=== PATIENT | male | born 1990 | race Caucasian/White ===

== ENCOUNTER 2018-09-18 05:59 | Emergency (ER) | payer BC ==
[2018-09-18 06:19] VITALS: RESP 18
--- NOTE | 2018-09-18 07:23 | ED ---
General Adult HPI - General Chief complaint: Dental/Oral Stated complaint: Lump in mouth, on gums Time Seen by Provider: 09/18/18 07:11 Source: patient, RN notes reviewed Mode of arrival: ambulatory Limitations: no limitations - History of Present Illness Initial comments: Patient 28-year-old male presents to the emergency room today with chief complaint of pain and swelling to the gumline. Does admit that symptoms started tenderness both in the front tooth lower jaw has gotten larger. States was no drainage. Denies any other complaints or symptoms. Does report with dentist or horizontal next week. Patient denies any recent fever, chills, shortness of breath, chest pain, back pain, abdominal pain, headaches or visual changes, or any other complaints. - Related Data Previous Rx's Medication Instructions Recorded Hydrocodone/Acetaminophen [[place] 1 each PO Q4HR PRN #15 tab 01/19/16 5-325] Metoclopramide HCl [Reglan] 10 mg PO Q6HR PRN #15 tablet 01/19/16 Clindamycin HCl 300 mg PO Q6H #40 cap 09/18/18 Allergies Allergy/AdvReac Type Severity Reaction Status Date / Time Penicillins Allergy Unknown Verified 09/18/18 06:19 Childhood Review of Systems ROS Statement: Those systems with pertinent positive or pertinent negative responses have been documented in the HPI. ROS Other: All systems not noted in ROS Statement are negative. Past Medical History Past Medical History: No Reported History History of Any Multi-Drug Resistant Organisms: None Reported Past Surgical History: Ear Surgery, Tonsillectomy Past Psychological History: No Psychological Hx Reported Smoking Status: Never smoker Past Alcohol Use History: None Reported Past Drug Use History: None Reported General Exam - General Exam Comments Initial Comments: General: The patient is awake and alert, in no distress, and does not appear acutely ill. Eye: There is normal conjunctiva bilaterally. No signs of icterus. Ears, nose, mouth and throat: Patient does have area of redness and mild swelling behind her front bottom tooth. Locally tender in this area. There is no drainage. No abscess to drain. Uvula midline. Swallows without difficulty. Neck: The neck is supple, there is no tenderness or JVD. Musculoskeletal: Normal ROM, no tenderness. Neurological: A&O x 3. CN II-XII intact, There are no obvious motor or sensory deficits. Coordination appears grossly intact. Speech is normal. Skin: Skin is warm and dry and no rashes or lesions are noted. Psychiatric: Cooperative, appropriate mood & affect, normal judgment. Limitations: no limitations Course Vital Signs 09/18/18 06:15 Temperature 98.3 F Pulse Rate 96 Respiratory 18 Rate Blood Pressure 155/85 O2 Sat by Pulse 98 Oximetry Medical Decision Making - Medical Decision Making The patient will be shown on antibiotics cover for dental abscess. Does have ALLERGIES to penicillin will be given prescription for clindamycin. Advised continued follow-up with his dentist. Advised return for any other concerns Disposition Clinical Impression: Dental abscess Disposition: HOME SELF-CARE Condition: Good Instructions (If sedation given, give patient instructions): Dental Abscess (ED) Additional Instructions: Please use medication as discussed. Please follow-up with dentist/family doctor in the next 2 days of symptoms have not improved. Please return to emergency room if the symptoms increase or worsen or for any other concerns. Prescriptions: Clindamycin HCl 300 mg PO Q6H #40 cap Is patient prescribed a controlled substance at d/c from ED?: No Referrals: None,Stated [Primary Care Provider] - 1-2 days Time of Disposition: 07:23
[2018-09-18 07:30] VITALS: BP 146/98; PULSE 70; TEMP 98.5
== END 2018-09-18 07:29 | disposition home or self-care (01) ==
LOC: EC 05:59
DX: K04.7 Periapical abscess without sinus (principal); Z88.0 Allergy status to penicillin
CPT/HCPCS: 99282

== ENCOUNTER → 2018-12-12 | Outpatient (CLI) | payer BC ==
--- NOTE | 2018-12-13 07:42 | CT ---
EXAMINATION TYPE: CT soft tissue neck wo/w con, CT facial bones wo/w con DATE OF EXAM: 12/12/2018 COMPARISON: None HISTORY: 28-year-old male cellulitis of mouth/face, Bump under tongue right side TECHNIQUE: Contiguous axial scanning of the soft tissues of the neck including the facial bones perfo rmed without and with IV Contrast, patient injected with 100 mL of Isovue 300. Coronal/sagittal recon structions performed. CT DLP: 1322 mGycm Automated exposure control for dose reduction was used. FINDINGS: There was technologist error and contrast injection was started at the time of the noncontrast scan. The contrast injector was stopped short and a washout period was allowed prior to resuming the scan. The noncontrast series has some contrast on board. Heterogeneously enhancing nodule measuring 1.9 cm within the lateral right lobe of the thyroid gland measured on coronal series. Submandibular glands appear satisfactory. Bilateral parotid glands are atrophic. No suspicious calcification seen along the floor of the mouth. Visualized orbits and globes, paranasal sinuses, and mastoid air cells appear clear. Slight rightward nasal septal deviation. The nasopharynx is clear. Mild hypertrophy of the lingual tonsils. Oropharynx otherwise clear. Epiglottis and prevertebral soft tissues within normal limits. The glottic and subglottic structures as well as the tracheal column and visualized upper lungs are c lear. No discrete soft tissue abnormality involving the face. Prominent dental amalgam artifact. A few scattered prominent but nonenlarged upper cervical lymph nodes measure up to 7 mm. No thoracic lymphadenopathy by CT size criteria. Bones: No osseous destructive process. IMPRESSION: 1. NO SIALOLITHIASIS OR EVIDENT SIALOADENITIS BY CT. 2. MILD BILATERAL LINGUAL TONSILLAR HYPERTROPHY. 3. NO OTHER SPECIFIC ABNORMALITY SEEN.
== END | disposition home or self-care (01) ==
LOC: RADCTMAIN 12-05 15:05
PROVIDERS: ATTEND Dentist Oral and Maxillofacial Surgery
DX: J35.1 Hypertrophy of tonsils (principal)
CPT/HCPCS: 70492; Q9967

== ENCOUNTER → 2023-09-25 | Outpatient (CLI) | payer OTHER ==
--- NOTE | 2023-09-25 16:23 | US ---
EXAMINATION TYPE: US thyroid st tissue head/neck DATE OF EXAM: 09/25/2023 COMPARISON: 12/12/2018. CLINICAL INDICATION: Male, 33 years old with history of E03.9 HYPOTHYROIDISM, UNSPECIFIED; known nodu le from previous CT GLAND SIZE: Right Lobe: 4.9 x 1.4 x 1.7 cm Overall Parenchyma: heterogeneous Left Lobe: 4.6 x 1.8 x 1.6 cm Overall Parenchyma: heterogeneous Isthmus Thickness: 0.5 cm NODULES RIGHT: # of nodules measured on right: 1 1. 2.7 X 1.9 x 1.7 cm, lower , Prior size: [employer] TIRADS Score: 4 TIRADS Category 4: Composition: Solid or almost completely solid (2 points). Echogenicity: Hypoechoic (2 points). Shape: Wider than tall (0 points). Margin: Smooth (0 points). Echogenic foci: None or large comet-tail artifacts (0 points) Recommendation: If >1.5cm: FNA; If >1cm: Follow up at 1,2, 3,5 years LEFT: # of nodules measured on left: 0 ISTHMUS: # of nodules measured in the isthmus: 0 Bilateral neck scanned, no evidence of lymphadenopathy. IMPRESSION: Right thyroid gland nodule meets criteria for fine needle aspiration if not already performed.
== END | disposition home or self-care (01) ==
LOC: RADUSWWP 15:03
PROVIDERS: ATTEND Family Medicine
DX: E04.1 Nontoxic single thyroid nodule (principal)
CPT/HCPCS: 76536

== ENCOUNTER 2023-11-14 11:57 | Day surgery (SDC) | payer OTHER ==
[2023-11-14 12:31] VITALS: BP 131/78; PULSE 68; RESP 12; TEMP 98.9
--- NOTE | 2023-11-14 13:55 | US ---
ULTRASOUND GUIDED FNA THYROID BIOPSY: CLINICAL HISTORY: Right thyroid nodule FINDINGS: The procedure was explained to the patient. The risks, complications, benefits and alternatives were discussed and any questions were answered. Informed consent was obtained. Patient was placed supin e on the ultrasound table and prepped and draped in the usual sterile fashion. Utilizing a 25 gauge needle, five passes were made into the requested right thyroid nodule. Patient was stable throughout the procedure. Pathology is pending. All elements of maximal barrier technique were utilized. IMPRESSION: 1. Successful ultrasound guided FNA thyroid biopsy.
== END 2023-11-14 13:30 | disposition home or self-care (01) ==
LOC: RADPROMAIN 11:57
PROVIDERS: ATTEND Otolaryngology
DX: E04.1 Nontoxic single thyroid nodule (principal)
CPT/HCPCS: 10005; 88173; 88305

== ENCOUNTER → 2024-11-08 | Outpatient (CLI) | payer OTHER ==
--- NOTE | 2024-11-08 14:07 | US ---
EXAMINATION TYPE: US thyroid st tissue head/neck DATE OF EXAM: 11/08/2024 COMPARISON: 09/25/23, 11/14/2023 CLINICAL INDICATION: Male, 34 years old with history of E04.1 THYROID NODULE; F/U TECHNIQUE: Grayscale and color Doppler imaging of the thyroid gland. FINDINGS: GLAND SIZE: Right Lobe: 4.1 x 1.5 x 1.5 cm Overall Parenchyma: homogeneous Left Lobe: 3.8 x 1.0 x 1.2 cm Overall Parenchyma: Heterogenous Isthmus Thickness: cm NODULES RIGHT: # of nodules measured on right: 1 1. 2.0 X 1.0 x 1.3 cm, lower lateral, solid or almost completely solid, isoechoic nodule, which is wider than tall, with smooth margins, without echogenic foci. TR 3 Prior size: 2.7 x 1.7 x 1.9 cm LEFT: # of nodules measured on left: 0 ISTHMUS: # of nodules measured in the isthmus: 0 Nodule has decreased in size and echogenicity. Difficult to delineate from surrounding thyroid parenc hyma. Bilateral neck scanned, no evidence of lymphadenopathy. IMPRESSION: Mildly suspicious nodule right lobe thyroid. Highest TI-RADS level nodule reported: 2017 ACR TI-RADS LEVEL: TI-RADS 3 - Mildly Suspicious: Follow if > 1.5 cm, FNA if > 2.5 cm TI-RADS assessment score and recommendation for follow-up based on appropriate scoring and treatment protocols. TR1 Benign No FNA TR2 Not suspicious No FNA TR3: If nodule size is ? 2.5 cm, FNA is recommended. If nodule size is ? 1.5 cm, follow-up imaging at 1, 3, and 5 years is recommended. TR4: If nodule size is ? 1.5 cm, FNA is recommended. If nodule size is ? 1.0 cm, follow-up imaging at 1, 2, 3, and 5 years is recommended. TR5: If nodule size is ? 1.0 cm, FNA is recommended. If nodule size is ? 0.5 cm, annual follow-up for up to 5 years is recommended. TR 1 thyroid nodules have a 0.3 % risk of malignancy. TR 2 thyroid nodules have a 1.5 % risk of malignancy. TR 3 thyroid nodules have a 4.8 % risk of malignancy. TR 4 thyroid nodules have a 9.1 % risk of malignancy. TR 5 thyroid nodules have a 35 % risk of malignancy. [email or web address] [facility], , 11/08/2024 2:05 PM
== END | disposition home or self-care (01) ==
LOC: RADUSWWP 13:26
PROVIDERS: ATTEND Internal Medicine
DX: E04.1 Nontoxic single thyroid nodule (principal)
CPT/HCPCS: 76536

== ENCOUNTER → 2024-11-11 | Outpatient (CLI) | payer OTHER ==
[2024-11-11 19:35] LABS: T4, Free (Free Thyroxine) 1.99 ng/dL (0.80-1.80)
== END | disposition home or self-care (01) ==
LOC: LABWHC1 14:36
PROVIDERS: ATTEND Internal Medicine
DX: E03.9 Hypothyroidism, unspecified (principal)
CPT/HCPCS: 36415; 84439; 84443